=== PATIENT | male | born 1970 | race Caucasian/White ===

== ENCOUNTER 2021-09-16 10:54 | Outpatient (CLI) | payer OTHER, SELFPAY | END 2021-09-16 10:55 | disposition home or self-care (01) | PROVIDERS: PCP Family Medicine; Visit Provider Family Medicine | DX: I48.91 Unspecified atrial fibrillation (principal) | CPT/HCPCS: 93306 ==

== ENCOUNTER 2021-09-18 17:18 | Emergency (ER) | payer OTHER, SELFPAY ==
[2021-09-18 17:41] VITALS: BP 136/106; PULSE 99; RESP 20; TEMP 36.2; O2SAT 99; BMI 24.4
[2021-09-18 18:00] VITALS: BP 138/97; PULSE 70; RESP 13; O2SAT 98
--- NOTE | 2021-09-18 18:30 | ED.CHESTPAIN ---
HPI - Chest Pain General Chief Complaint: Chest Pain Stated Complaint: Arrhythmeia Time Seen by Provider: 09/18/21 17:23 Source: patient, RN notes reviewed and old records reviewed Mode of arrival: ambulatory Limitations: no limitations History of Present Illness HPI narrative: 51-year-old man presenting to the emergency department with concern of chest pressure. Focus just feeling a little bit uneasy unwell this morning. Then began to have over time or pressure in his upper chest. Somewhat pleuritic in nature. It became more bothered about this noting that began to freak out. By the time I am seeing him he is feeling a good deal better. He thinks that this has been a combination of his GERD and some anxiety over recent events. Was seen in 05 of September in this facility with AFib and RVR and cardioverted. Has had follow-up echocardiogram. I reviewed his records this echocardiogram was unremarkable. He has since also cut back on alcohol and smoking. Otherwise at baseline of health. No lightheadedness. No sense of irregular heartbeats it sounds like he was quite worried he might be back in atrial fibrillation. He did follow up in primary care and has pending appointment with Cardiology at the end of this week. I discuss our EKG findings with him here today. He is not in atrial fibrillation. Is relieved. I compared EKG to prior. He continues to take his regular aspirin. Takes what sounds like a proton pump inhibitor Related Data Home Medications Medication Instructions Recorded Confirmed aspirin 81 mg chewable tablet 81 mg PO QDAY 09/06/21 09/06/21 Heartburn and Acid Reflux 09/18/21 Allergies Allergy/AdvReac Type Severity Reaction Status Date / Time No Known Drug Allergies Allergy Verified 09/06/21 12:22 Review of Systems Status of ROS Reports: 10 or more systems reviewed and unremarkable except as noted in History and below PFSH PFSH Medical History Atrial fibrillation with RVR Surgical History H/O hernia repair Family History Mother Lung disease Father S/P AAA repair 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 Smoker 1ppd, 20 drinks per week, nightly marijuana. Physical activity type: none Smoking Status: Current every day smoker How often do you have a drink containing alcohol: 4 or more times a week How many standard drinks containing alcohol do you have on a typical day: 1 or 2 AUDIT-C Alcohol total score: 4 Non-prescribed substance use: marijuana (any form) Exam Narrative Exam Narrative: Pleasant. NAD. Breathing easily. cranial nerves 2-12 are intact large no. Hands are Roughened. Clearly works with his hands. 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 extremities are without edema. Moving all extremities without difficulty. Well-perfused. lungs are clear. no pain to palpation of the chest CV is RRR to bradycardic. No MRG appreciated. abdomen soft nontender Const Vital Signs, click to edit/add: Vital Signs - 24 hr 09/18/21 17:41 09/18/21 18:00 Temperature 97.1 F L Pulse Rate [Pulse Oximeter] 99 70 Respiratory Rate 20 13 Blood Pressure [Left Upper Arm] 136/106 H 138/97 H Pulse Oximetry 99 98 Documenting provider has reviewed patient's vital signs: yes Course Course Hospital Course: was on manager monitoring. Regular rhythm. interview interview and exam as above Vital Signs Vital signs: Initial Vital Signs Temperature 97.1 F L 09/18/21 17:41 Temperature Source Temporal Artery Scan 09/18/21 17:41 Pulse Rate 99 09/18/21 17:41 Pulse Rhythm 09/18/21 17:41 Respiratory Rate 20 09/18/21 17:41 Blood Pressure 136/106 H 09/18/21 17:41 Blood Pressure Mean 116 09/18/21 17:41 Blood Pressure Position Supine 09/18/21 17:41 Pulse Oximetry 99 09/18/21 17:41 Oxygen Delivery Method 09/18/21 17:41 Vital Signs Temperature 97.1 F L 09/18/21 17:41 Pulse Rate 99 09/18/21 17:41 Respiratory Rate 20 09/18/21 17:41 Blood Pressure 136/106 H 09/18/21 17:41 Pulse Oximetry 99 09/18/21 17:41 Temperature 97.1 F L 09/18/21 17:41 Pulse Rate 70 09/18/21 18:00 Respiratory Rate 13 09/18/21 18:00 Blood Pressure 138/97 H 09/18/21 18:00 Pulse Oximetry 98 09/18/21 18:00 MDM - Chest Pain MDM Narrative Medical decision making narrative: EKG reviewed by me shows normal sinus rhythm. Similar orientation as prior following cardioversion. Normal sinus at 60 today. No ischemic changes appreciated. I did discuss differential of chest pressure. Mr. Hernandez is overall reassured and apparent that he would not like to proceed with further workup at this time. I discussed that we have not ruled out other life-threatening concerns including myocardial infarction among others. He would still like to depart after this initial assessment. Medical Records Data Attestation: I reviewed the patient's medical records. Discharge Plan Discharge Clinical Impression: Chest pressure Patient Disposition: Home, Self-Care Condition: Improved Additional Instructions: This may have been a sequence of events as you suspect though we have not proven that here today. It does not appear though that you are in atrial fibrillation thankfully. Continue to take your aspirin and your heartburn medicine for now. At this point follow-up as scheduled at the end of this coming week with Cardiology. Otherwise return for increasing chest pain, shortness of breath, lightheadedness. Prescriptions: No Action aspirin 81 mg tablet,chewable 81 mg PO QDAY 0RF Heartburn and Acid Reflux 0RF Follow Up/Referrals: Alin Mir MD [Primary Care Provider] - Stand Alone Forms: BrandCont Info Instructions
== END 2021-09-18 18:31 | disposition home or self-care (01) ==
LOC: ED 18:23
PROVIDERS: Emergency Provider Family Medicine; PCP Family Medicine
DX: R07.89 Other chest pain (principal)
CPT/HCPCS: 93005; 99283; 99284

== ENCOUNTER 2021-10-07 10:48 | Outpatient (CLI) | payer OTHER, SELFPAY | END 2021-10-07 10:49 | disposition home or self-care (01) | PROVIDERS: PCP Family Medicine; Visit Provider Internal Medicine Cardiovascular Disease | DX: I48.91 Unspecified atrial fibrillation (principal) | CPT/HCPCS: 84443 ==

== ENCOUNTER 2024-05-16 08:06 | Emergency (ER) | payer OTHER, SELFPAY ==
--- OUTSIDE RECORDS SUMMARY | 2024-05-16 08:08 | XMS_ITS | Clinical Summary ---
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 Gender Identity Not on file Sexual Orientation Not on file Last Filed Vital Signs Vital Sign Reading Time Taken Comments Blood Pressure 127/86 03/16/2023 12:01 PM INSOLE AND OUTSOLE SPLITTER Pulse 80 03/16/2023 12:01 PM INSOLE AND OUTSOLE SPLITTER Temperature 36.6 C (97.9 F) 03/16/2023 12:01 PM INSOLE AND OUTSOLE SPLITTER Respiratory Rate 18 03/16/2023 12:01 PM INSOLE AND OUTSOLE SPLITTER Oxygen Saturation 99% 03/16/2023 12:01 PM INSOLE AND OUTSOLE SPLITTER Inhaled Oxygen Concentration - - Weight 90.4 kg (199 lb 4.8 oz) 03/16/2023 12:01 PM INSOLE AND OUTSOLE SPLITTER Height 177.8 cm (5' 10) 03/16/2023 12:01 PM INSOLE AND OUTSOLE SPLITTER Body Mass Index 28.6 03/16/2023 12:01 PM INSOLE AND OUTSOLE SPLITTER Plan of Treatment Health Maintenance Due Date Last Done Comments ADVANCE CARE PLANNING 1972 ANNUAL REVIEW OF HM ORDERS 1972 CT COLONOGRAPHY 1972 FIT 1972 FLEX SIG 1972 GLUCOSE 1972 sDNA (Cologuard) 1972 YEARLY PREVENTIVE VISIT 07/29/1975 COLONOSCOPY 1982 COLORECTAL CANCER SCREENING 1982 HIV SCREENING 07/29/1987 HEPATITIS C SCREENING 1990 HEPATITIS B IMMUNIZATION (1 of 3 - 19+ 3-dose series) 07/29/1991 LIPID 2012 Pneumococcal Vaccine: 50+ Years (1 of 1 - PCV) 2022 ZOSTER IMMUNIZATION (1 of 2) 2022 COVID-19 Vaccine (4 - 2023-2 5 season) 2023 02/11/2021, 07/19/2020, 06/21/2020 INFLUENZA VACCINE (#1) 2023 PHQ-2 (once per calendar year) 2024 DTAP/TDAP/TD IMMUNIZATION (3 - Td or Tdap) 03/16/2033 03/16/2023, 06/28/2016, 07/03/2002 RSV VACCINE (1 - 1-dose 75+ series) 07/29/2047 HPV IMMUNIZATION Aged Out No longer e ligible based on patient's age to complete this topic MENINGITIS IMMUNIZATION Aged Out No l onger eligible based on patient's age to complete this topic RSV MONOCLONAL ANTIBODY Aged Out No l onger eligible based on patient's age to complete this topic Insurance [employer] [facility] Member Subscriber Plan / Payer (Ef fective 2023-Present) Name:Ulises Buck Relation to Subscriber:Employee Name:LISHA CALDERON Date of :1897 (Home) (Work) Address: [address] [place] [id number] Payer ID:[id number] Group ID:Not on file Type:Not on file [facility] [address] [place] [address] [place] [address] Care Teams Public Works Technician Relationship Specialty Start Date End Date No Ref-Primary, Physician PCP - General 03/16/23
--- OUTSIDE RECORDS SUMMARY | 2024-05-16 08:08 | XMS_ITS | Encounter Summary ---
Author Organization [facility] Address [address] [place] [address]. [place] [address] Care Team Providers Care Thermostat Maker Name Role Phone No Ref-Primary, Physician Primary Care Provider Encounter Details Date Type Department Care Team ([facility] st Contact Info) Description 03/16/2023 Ophth Exam [facility] Services - Eye Care Service Line [address] [place] [phone] Bella Puckett MD [address] [id number] Social History Tobacco Use Types Packs/Day Years Used Date Smoking Tobacco: Never Assessed Adolescent Education Answer Date Record ed Getting School Help Needed Not on file 03/17 Sex and Gender Information Value Date Recorded Sex Assigned at Not on file 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
--- OUTSIDE RECORDS SUMMARY | 2024-05-16 08:08 | XMS_ITS | Clinical Summary ---
Author Organization [facility] Address [address] [place] [address] Care Team Providers Care Bonderizer Operator Name Role Phone Alin Mir MD Primary Care Provider [phone] Allergies No known active allergies Medications ZANTAC 150 MG TAB take 1 tablet (150 mg) by oral route 2 times per day 07/27/2008 Active Active Problems No known active problems Immunizations Name Administration Dates Next Due Td (Age >=7 Years) 07/03/2002 Tdap 03/16/2023,06/28/2016 Social History Tobacco Use Types Packs/Day Years Used Date Smoking Tobacco: Every Day Cigarettes Smokeless Tobacco: Never Tobacco Cessation:Counseling Given: Yes Alcohol Use Standard Drinks/Week Comments Not Asked 0 (1 standard drink = 0.6 oz pur e alcohol) Sex and Gender Information Value Date Recorded Sex Assigned at Not on file Legal Sex Male 6:32 AM INCOME TAX ADMINISTRATOR Gender Identity Not on file Sexual Orientation Not on file Obstetrics History Last Filed Vital Signs Vital Sign Reading Time Taken Comments Blood Pressure 133/78 03/16/2023 9:19 AM INCOME TAX ADMINISTRATOR Pulse 86 03/16/2023 9:19 AM INCOME TAX ADMINISTRATOR Temperature 36.8 C (98.3 F) 12/04/2012 9:55 AM CDT Respiratory Rate 16 10/21/2009 10:58 AM CDT Oxygen Saturation 99% 03/16/2023 9:19 AM INCOME TAX ADMINISTRATOR Inhaled Oxygen Concentration - - Weight 93 kg (205 lb) 03/16/2023 9:19 AM INCOME TAX ADMINISTRATOR Height 174 cm (5' 8.5) 12/04/2012 9:55 AM CDT Body Mass Index - - Plan of Treatment Health Maintenance Due Date Last Done Comments Depression screening for age 12+ 1984 HIV for age 15-65 07/29/1987 BMI (ht and wt on same day) for age 18+ 1990 Hepatitis C screening for age 18-79 1990 Pneumococcal series for age 50+ (1 of 2 - PCV) 07/29/1991 Colonoscopy through age 75 2017 Lipids for age 45-75 2017 Zoster (shingles) series for age 50+ (1 of 2) 2022 COVID-19 vaccine series ( season) 2023 02/11/2021, 07/19/2020, 06/21/2020 Influenza for age 50-64 11/11/2023 Tetanus booster 03/16/2033 03/16/2023, 06/10, 07/03/2002 Tdap Completed 03/16/2023, 06/28/2016 Insurance [facility] IN[employer] AND FAMILY [employer] WORK[employer] COMP [place] [id number] [address] [id number] [facility] [place] [id number] [facility] COMP [place] [id number] [facility] Care Teams Bonderizer Operator Relationship Specialty Start Date End Date Alin Mir MD [address] [facility] [facility] [place] [id number] PCP - General Family Practice 09/16/21
--- NOTE | 2024-05-16 08:16 | ED.GENADULT ---
HPI - General Adult General Chief complaint: Chest Pain Stated complaint: Possible Afib Time Seen by Provider: 05/16/24 08:07 History of Present Illness HPI narrative: Patient here with tightness in his chest that started yesterday. States he thought he was just getting sick. History of afib in 2020 . Significant stressors with several deaths in the family over the past 3 months. 53-year-old man presenting to the emergency department this morning with concern of chest pain. Maybe more of a pressure tightness. This has been going on really since yesterday evening. Does have a history of AFib with RVR requiring cardioversion. This morning though was still present when he was trying to set up for work and just thought he should get checked out. He and his brother who is here with him, note significant stressors recently particularly with of 3 family members and father now on hospice. Sounds as though Ulises is a primary caregiver. Work also listed as significant stressor. Both asked repeatedly, could this be stress? Not reporting lightheadedness. Does have a history of heartburn or GERD but has not really been flaring lately. Takes Tums as needed no longer taking a daily medication in this regard. Nor is he on rate control. Since last visit in this department in 2021 has markedly decreased alcohol intake from on 12 - 18 beers a day to maybe 2 or 3. Does continue to smoke. Review of records shows echo from 2021 to in September with normal ejection fraction of 55-60% and normal LV size and wall thickness. No other notable abnormalities. Related Data Home Medications ?Medication ?Instructions ?Recorded ?Confirmed No Known Home Medications 05/16/24 05/16/24 Allergies Allergy/AdvReac Type Severity Reaction Status Date / Time No Known Drug Allergies Allergy Verified 03/08/24 10:00 Review of Systems Status of ROS: Reports: 6 or more systems reviewed and unremarkable except as noted in History and below [facility] Medical History Tobacco dependence ?F17.200 - Nicotine dependence, unspecified, uncomplicated (ICD-10) Insomnia ?G47.00 - Insomnia, unspecified (ICD-10) GERD (gastroesophageal reflux disease) ?K21.9 - Gastro-esophageal reflux disease without esophagitis (ICD-10) Atrial fibrillation with RVR ?I48.91 - Unspecified atrial fibrillation (ICD-10) Surgical History H/O hernia repair ?Z98.890 - Other specified postprocedural states (ICD-10) ?Z87.19 - Personal history of other diseases of the digestive system (ICD-10) S/P ACL repair ?Z98.890 - Other specified postprocedural states (ICD-10) Family History Mother Lung disease Father S/P AAA repair 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 Smoker 1ppd, 20 drinks per week, nightly marijuana. Physical activity type: none Smoking Status: Current every day smoker How often do you have a drink containing alcohol: 4 or more times a week How many standard drinks containing alcohol do you have on a typical day: 1 or 2 AUDIT-C Alcohol total score: 4 Non-prescribed substance use: marijuana (any form) Exam Narrative: Exam Narrative: Pleasant. NAD. Heavily bearded. Cranial nerves 2-12 intact. Moving all extremities without difficulty. Well-perfused peripherally. No extremity edema. Small slightly of cigarette smoke. Lungs are clear. Heart in regular rate and rhythm without murmur rub or gallop. Abdomen is soft and nontender. There is no pain to palpation over chest wall either. Const: Vital Signs, click to edit/add: Vital Signs - 24 hr 05/16/24 08:17 05/16/24 10:26 Temperature 97.3 F L Pulse Rate [Pulse Oximeter] 83 78 Respiratory Rate 18 18 Blood Pressure [Ri ght Upper Arm] 144/80 H 116/91 H Pulse Oximetry 96 96 Oxygen Delivery Me thod Room Air Room Air Documenting provider has reviewed patient's vital signs: yes Course Vital Signs Vital signs: Initial Vital Signs Temperature 97.3 F L 05/16/24 08:17 Temperature Source Temporal Artery Scan 05/16/24 08:17 Pulse Rate 83 05/16/24 08:17 Respiratory Rate 18 05/16/24 08:17 Blood Pressure 144/80 H 05/16/24 08:17 Blood Pressure Mean 101 05/16/24 08:17 Blood Pressure Position Sitting 05/16/24 08:17 Pulse Oximetry 96 05/16/24 08:17 Oxygen Delivery Method Room Air 05/16/24 08:17 Vital Signs Temperature 97.3 F L 05/16/24 08:17 Pulse Rate 83 05/16/24 08:17 Respiratory Rate 18 05/16/24 08:17 Blood Pressure 144/80 H 05/16/24 08:17 Pulse Oximetry 96 05/16/24 08:17 Oxygen Delivery Method Room Air 05/16/24 08:17 Temperature 97.3 F L 05/16/24 08:17 Pulse Rate 78 05/16/24 10:26 Respiratory Rate 18 05/16/24 10:26 Blood Pressure 116/91 H 05/16/24 10:26 Pulse Oximetry 96 05/16/24 10:26 Oxygen Delivery Method Room Air 05/16/24 10:26 Medical Decision Making MDM Narrative Medical decision making narrative: I do event review EKG at time of initial patient interview. Shows normal sinus rhythm at a rate of 80. Monitor appears to show sinus rhythm as well. EKG is similar to prior Chest pressure of uncertain etiology at this point. Doubtful ischemic but will check for this. Pneumothorax as well? Look for any evidence of biliary disease. Might be related to heartburn. I think am inclined to agree with Ulises that this might be stress related but will look further. Infectious? Congestion? Indication: Chest pressure Comparison: Single view chest dated Sep 05, 2021. Technique: Single AP view chest Findings: There is hyperinflation and mild increased interstitial markings. There is no focal consolidation, effusion, or pneumothorax. The cardiomediastinal silhouette is within normal limits. The bony thorax is grossly intact. Impression: Mildly increased pulmonary vascular congestion. Discussed findings with Ulises. Reiterates no cough or cold symptoms recently. Is not really short of breath. Labs are reassuring without evidence of cardiac strain or injury. On monitor without arrhythmia. Overall he feels improved. See patient discharge plan for further discussion Does not look like there has been any recent injury. Some mild congestion was noted in your chest x-ray. I would at this point keep practicing healthy living. You have made some big improvements in that. See this quit plan information. Do your best to stop smoking. Try to get in a little heart pumping exercise daily. Best wishes with the decisions you have to make with regard to family. Medical Records Medical records reviewed: Yes I reviewed the patient's medical records Lab Data Lab results reviewed: Yes I reviewed the patient's lab results Labs: Lab Results 05/16/24 05/16/24 Range/Units 08:37 08:47 Hgb 15.4 (13.5-17.5) gm/dL Sodium 137 (135-149) mmol/L Potassium 4.8 (3.6-5.1) mmol/L Chloride 103 (96-114) mmol/L Carbon Dioxide 24 (20-32) mmol/L Anion Gap 10 (7-15) mEq/L BUN 16 (7-30) mg/dL Creatinine 1.0 (0.5-1.5) mg/dL Estimated Creat Clear 90.24 Estimated GFR 91 ml/min Glucose 103 (60-115) mg/dL Calcium 9.2 (8.4-10.6) mg/dL Total Bilirubin 1.0 (0.1-1.5) mg/dL Direct Bilirubin 0.0 (0.0-0.5) mg/dL AST 27 (12-35) U/L ALT 52 H (4-50) U/L Alkaline Phosphatase 84 (40-150) U/L Troponin I < 0.01 L (0.01-0.04) ng/mL NT-Pro-B Natriuret Pep < 20 pg/mL Total Protein 7.2 (6.0-8.3) g/dL Albumin 4.6 (3.3-5.0) g/dL Lipase 71 (23-300) U/L POC Troponin I 0.00 L (0.01-0.04) ng/ml ECG Data Attestation: I personally reviewed and interpreted this ECG as follows: (Normal sinus rhythm. Rate of 80) Discharge Plan Discharge Clinical Impression: Atypical chest pain Patient Disposition: Home, Self-Care Condition: Stable Instructions: Noncardiac Chest Pain (ED) Additional Instructions: Does not look like there has been any recent injury. Some mild congestion was noted in your chest x-ray. I would at this point keep practicing healthy living. You have made some big improvements in that. See this quit plan information. Do your best to stop smoking. Try to get in a little heart pumping exercise daily. Best wishes with the decisions you have to make with regard to family. Prescriptions: No Action No Known Home Medications Follow Up/Referrals: Alin Mir MD [Primary Care Provider] - Stand Alone Forms: charming charlie Info Instructions
[2024-05-16 08:17] VITALS: BP 144/80; PULSE 83; RESP 18; TEMP 36.3; O2SAT 96; BMI 29.4
--- OUTSIDE RECORDS SUMMARY | 2024-05-16 08:44 | XMS_ITS | Clinical Summary ---
Author Organization [facility] Address [address] [place] [address] Care Team Providers Care Steam Pressure Chamber Operator Name Role Phone Alin Mir MD Primary Care Provider [phone] Allergies No known active allergies Medications ZANTAC [...] on file Legal Sex Male 6:32 AM CHASSIS WIRER Gender Identity Not on file Sexual Orientation Not on file Obstetrics History Last Filed Vital Signs Vital Sign Reading Time Taken Comments Blood Pressure 133/78 03/16/2023 9:19 AM CHASSIS WIRER Pulse 86 03/16/2023 9:19 AM CHASSIS WIRER Temperature 36.8 C (98.3 F) 12/04/2012 9:55 AM CDT Respiratory Rate 16 10/21/2009 10:58 AM CDT Oxygen Saturation 99% 03/16/2023 9:19 AM CHASSIS WIRER Inhaled Oxygen Concentration - - Weight 93 kg (205 lb) 03/16/2023 9:19 AM CHASSIS WIRER Height 174 cm (5' 8.5) 12/04/2012 9:55 [...] 06/10, 07/03/2002 Tdap Completed 03/16/2023, 06/28/2016 Insurance [facility] IN[facility] AND FAMILY PLANS WORKERS COMP [place] [id number] [address] [id number] [facility] [place] [id number] [facility] COMP [place] [id number] [facility] Care Teams Steam Pressure Chamber Operator Relationship Specialty Start Date End Date Alin Mir MD [address] [facility] [place] [phone] PCP - General Family Practice 09/16/21
--- OUTSIDE RECORDS SUMMARY | 2024-05-16 08:44 | XMS_ITS | Encounter Summary ---
Author Organization [facility] Address [address] [place] [address]. [place] [address] Care Team Providers Care Annual Greenhouse Manager Name Role Phone No Ref-Primary, Physician Primary Care Provider Encounter Details Date Type Department Care Team ([facility] st Contact Info) Description 03/16/2023 Ophth Exam [facility] Services - Eye Care Service Line [address] [place] [phone] Bella Puckett MD [address] [id number] Social History Tobacco Use Types Packs/Day Years Used Date Smoking Tobacco: Never Assessed Adolescent Education Answer Date Record ed Getting School Help Needed Not on file 03/17 Sex and Gender Information Value Date Recorded Sex Assigned at Not on file 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
--- OUTSIDE RECORDS SUMMARY | 2024-05-16 08:44 | XMS_ITS | Clinical Summary ---
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 Gender Identity Not on file Sexual Orientation Not on file Last Filed Vital Signs Vital Sign Reading Time Taken Comments Blood Pressure 127/86 03/16/2023 12:01 PM SLOT OPERATIONS DIRECTOR Pulse 80 03/16/2023 12:01 PM SLOT OPERATIONS DIRECTOR Temperature 36.6 C (97.9 F) 03/16/2023 12:01 PM SLOT OPERATIONS DIRECTOR Respiratory Rate 18 03/16/2023 12:01 PM SLOT OPERATIONS DIRECTOR Oxygen Saturation 99% 03/16/2023 12:01 PM SLOT OPERATIONS DIRECTOR Inhaled Oxygen Concentration - - Weight 90.4 kg (199 lb 4.8 oz) 03/16/2023 12:01 PM SLOT OPERATIONS DIRECTOR Height 177.8 cm (5' 10) 03/16/2023 12:01 PM SLOT OPERATIONS DIRECTOR Body Mass Index 28.6 03/16/2023 12:01 PM SLOT OPERATIONS DIRECTOR Plan of Treatment Health Maintenance Due Date [...] this topic Insurance [employer] [facility] Member Subscriber Plan / Payer (Ef fective 2023-Present) Name:Ulises Buck Relation to Subscriber:Employee Name:LISHA CALDERON Date of :1897 (Home) (Work) Address: [address] [place] [id number] Payer ID:[id number] Group ID:Not on file Type:Not on file Address: [facility] [address] [place] [address] [place] [address] Care Teams Bench Assembly Inspector Relationship Specialty Start Date End Date No Ref-Primary, Physician PCP - General 03/16/23
[2024-05-16 08:56] LABS: Hemoglobin* 15.4 gm/dL (13.5-17.5)
[2024-05-16 09:08] LABS: Albumin* 4.6 g/dL (3.3-5.0); Chloride* 103 mmol/L (96-114)
[2024-05-16 09:09] LABS: Potassium* 4.8 mmol/L (3.6-5.1); Sodium* 137 mmol/L (135-149)
[2024-05-16 09:11] LABS: Alkaline Phosphatase* 84 U/L (40-150); Anion Gap 10 mEq/L (7-15); Aspartate Amino Transferase* 27 U/L (12-35); Blood Urea Nitrogen* 16 mg/dL (7-30); Carbon Dioxide* 24 mmol/L (20-32); Est. Creatinine Clearance* 90.24; Estimated Glomerular Filt Rate 91 ml/min; Glucose* 103 mg/dL (60-115); Total Protein* 7.2 g/dL (6.0-8.3)
[2024-05-16 09:12] LABS: Alanine Aminotransferase* 52 U/L (4-50); Calcium* 9.2 mg/dL (8.4-10.6); Lipase* 71 U/L (23-300)
[2024-05-16 09:26] LABS: NT Pro B Type NatriureticPept* < 20 pg/mL; Troponin I* < 0.01 ng/mL (0.01-0.04)
[2024-05-16 10:26] VITALS: BP 116/91; PULSE 78; RESP 18; O2SAT 96
== END 2024-05-16 10:27 | disposition home or self-care (01) ==
PROVIDERS: Emergency Provider Family Medicine; PCP Family Medicine
DX: R07.9 Chest pain, unspecified (principal)
CPT/HCPCS: 36415; 71045; 80048; 80076; 83690; 83880; 84484; 85018; 93005; 99284